=== PATIENT | female | born 1970 | race African-American/Black ===

== ENCOUNTER 2016-11-23 17:20 | Emergency (ER) | payer MEDICAID, OTHER ==
[~2016-11-23] VITALS: Ht 180.3 cm; Wt 81.6 kg
[~2016-11-23 17:20] MED LIST: NKM
[2016-11-23 17:26] VITALS: BP 149/75
[2016-11-23 17:48] LABS: APPEARANCE,URINE CLEAR; KETONES,URINE NEGATIVE (NEGATIVE); LEUKOCYTE ESTERASE ,URINE NEGATIVE (NEGATIVE); NITRITE,URINE NEGATIVE (NEGATIVE); PH,URINE 7 (4.5-8.0); PROTEIN,URINE NEGATIVE (NEGATIVE); UROBILINOGEN,URINE NORMAL MG/DL (0.0-1.0)
[2016-11-23 18:01] LABS: WBC,URINE 0 /HPF (0 - 2)
--- NOTE | 2016-11-23 18:06 | Emergency Room Report ---
History of Present Illness General Chief Complaint: Abdominal Pain Source: Patient Present Illness HPI 46 -year-old female presents to emergency Department complaining of 2 months of not having a period, and then having her period x3 days with more cramping than usual. Patient is requesting test. She also reports long-standing history since childhood of constipation having bm's every 2-3 days, with history of hemorrhoids and is requesting refill of the hemorrhoid cream. Pt denies rectal pain or BRBPR. Patient states she had a negative urine test at home. She denies nausea, vomiting, fevers, chills patient reports lower abdominal cramping 6/10 in nature. Denies dysuria, frequency, hematuria. Patient reports low back pain as well 4/10 in severity constant in nature. she is , with 3 prior abortions. Denies CP, Palpitations, LOC, AMS , dizziness, Changes in Vision, Sensation, paresthesias, or a sudden severe headache. Allergies: Coded Allergies: No Known Allergies (Unverified , 01/26/15) Patient History Past Medical History: see triage record Past Surgical History: none Pertinent Family History: none Last Menstrual Period: 09/20/16 Now: No Reviewed Nursing Documentation: PMH: Agreed, PSxH: Agreed Nursing Documentation-PMH Past Medical History: No Stated History Review of Systems All Other Systems: negative except mentioned in HPI Physical Exam Vital Signs Date Time Temp Pulse Resp B/P Pulse Ox O2 Delivery O2 Flow Rate FiO2 11/23/16 17:23 98.1 79 20 151/73 100 Room Air Sp02 EP Interpretation: reviewed, normal General Appearance: no apparent distress, alert, GCS 15, non-toxic Head: normocephalic, atraumatic Eyes: bilateral eye PERRL, bilateral eye normal inspection ENT: hearing grossly normal, normal pharynx, no angioedema, normal voice Neck: full range of motion, supple/symm/no masses Respiratory: chest non-tender, lungs clear, normal breath sounds, speaking full sentences Cardiovascular #1: regular rate, rhythm, no edema Cardiovascular #2: 2+ carotid (R), 2+ carotid (L), 2+ radial (R), 2+ radial (L) , 2+ dorsalis pedis (R), 2+ dorsalis pedis (L) Gastrointestinal: normal bowel sounds, non tender, soft, no guarding, no rebound Rectal: deferred Genitourinary: normal inspection, no CVA tenderness, other - no adenexal TTP. dark red blood in vaginal vault, os is closed. Musculoskeletal: back normal, gait/station normal, normal range of motion, non- tender, no calf tenderness Neurologic: alert, oriented x3, responsive, motor strength/tone normal, sensory intact, speech normal Psychiatric: judgement/insight normal, memory normal, mood/affect normal, no suicidal/homicidal ideation Skin: normal color, no rash, warm/dry, well hydrated Lymphatic: no adenopathy Medical Decision Making PA Attestation Dr. curtis is my supervising Physician whom patient management has been discussed with. Diagnostic Impression: Primary Impression: Dysfunctional uterine bleeding Additional Impressions: Hx of hemorrhoids Constipation Qualified Codes: K59.00 - Constipation, unspecified ER Course Pt. presents to the ED c/o vaginal bleeding: x 2 days with lower abdominal uterine cramping, and LBP after not having period x 2 months. pt. has hx of abortions and wants test. -Pt also reprots hx of constipation and hemorrhoids and would like refill of her hemorrhoid cream. Ddx considered but are not limited to: Fibroid, ectopic , Malignancy, Spontaneous , , DUB, pre-menopause Vital signs: are WNL, pt. is afebrile Pelvic Exam: dark red blood in vaginal vault, os is closed. H&PE are most consistent with: benign exam most likely menstrual cycle abnormality due to pt. age, will r/o /miscarriage. ORDERS: -Urine Hcg: NEGATIVE. -UA: WNL/unremarkable ED INTERVENTIONS: None at this time. - D/w pt. to follow up with OBGYN DISCHARGE: At this time pt. is stable for d/c to home. Will provide printed patient care instructions, and any necessary prescriptions. Care plan and follow up instructions have been discussed with the patient prior to discharge. Labs Test 11/23/16 17:30 Urine Color Pale yellow Urine Appearance Clear Urine pH 7 (4.5-8.0) Urine Specific [place] 1.005 (1.005-1.035) Urine Protein Negative (NEGATIVE) Urine Glucose (UA) Negative (NEGATIVE) Urine Ketones Negative (NEGATIVE) Urine Occult Blood 5+ (NEGATIVE) Urine Nitrite Negative (NEGATIVE) Urine Bilirubin Negative (NEGATIVE) Urine Urobilinogen Normal MG/DL (0.0-1.0) Urine Leukocyte Esterase Negative (NEGATIVE) Urine RBC 10-15 /HPF (0 - 2) Urine WBC 0 /HPF (0 - 2) Urine Squamous Epithelial Cells None /LPF (NONE/OCC) Urine Bacteria None /HPF (NONE) Urine HCG, Qualitative Negative Last Vital Signs Date Time Temp Pulse Resp B/P Pulse Ox O2 Delivery O2 Flow Rate FiO2 11/23/16 17:23 98.1 79 20 151/73 100 Room Air Disposition: HOME, SELF-CARE Condition: Stable Scripts Hydrocortisone (Hydrocortisone) 30 Gm Cream.appl 1 APPLIC RC BID, #30 GM Prov: Maida Dawn 11/23/16 Docusate Sodium* (COLACE*) 100 Mg Capsule 100 MG ORAL TWICE A DAY for 30 Days, #60 CAP Prov: Maida Dawn 11/23/16 Ibuprofen* (MOTRIN*) 600 Mg Tablet 600 MG ORAL THREE TIMES A DAY, #30 TAB 0 Refills Prov: Maida Dawn 11/23/16 Patient Instructions: Dysfunctional Uterine Bleeding, Hemorrhoids, [id number]-[id number] Additional Instructions: Take medications as directed. Follow up with PCP in 3-5 days - Follow up with OBGYN in 3-5 days. Return sooner to ED if new symptoms occur, or current symptoms become worse. Maida Dawn Nov 23, 2016 18:06
[2016-11-23] MEDS ORDERED: COLACE100 MG ORAL (18:25)
[2016-11-23] MEDS ORDERED: HYDROCORTISONE30 G3 RC (18:25)
[2016-11-23] MEDS ORDERED: IBUPROFEN600 MG ORAL (18:25)
[2016-11-23 18:28] VITALS: BP 153/79
[2016-11-23 18:33] VITALS: BP 153/79
== END 2016-11-23 18:33 | disposition home or self-care (01) ==
LOC: EMR 18:30
DX: N93.8 Other specified abnormal uterine and vaginal bleeding (principal); K59.00 Constipation, unspecified
CPT/HCPCS: 81003; 81025; 99284